=== PATIENT | female | born 1970 | race Caucasian/White ===

== ENCOUNTER → 2024-12-28 17:40 | Outpatient (REF) | payer OTHER, SELFPAY | LOC: RAD 17:40 | PROVIDERS: ATTENDING PHYSICIAN Family Medicine | DX: R05.1 Acute cough (principal) | CPT/HCPCS: 71046 ==

== ENCOUNTER → 2025-02-07 07:59 | Outpatient (REF) | payer OTHER, SELFPAY | LOC: RAD 07:59 | PROVIDERS: ATTENDING PHYSICIAN Family Medicine | DX: R19.8 Other specified symptoms and signs involving the digestive system and abdomen (principal) | CPT/HCPCS: 76770 ==